=== PATIENT | female | born 1955 | race Caucasian/White ===

== ENCOUNTER → 2016-12-07 | Outpatient (CLI) | payer BC ==
[2016-12-07 14:15] LABS: Non-African American GFR(MDRD) >60 (>60 ml/min/1.73 sqM)
== END | disposition home or self-care (01) ==
LOC: LABWHC1 13:15
PROVIDERS: ATTEND Family Medicine
DX: Z01.818 Encounter for other preprocedural examination (principal)
CPT/HCPCS: 36415; 82565

== ENCOUNTER → 2016-12-08 | Outpatient (CLI) | payer BC ==
--- NOTE | 2016-12-13 12:59 | MR ---
MR internal auditory canals with and without contrast HISTORY: Acoustic neuroma, postop follow-up Multiplanar multisequence and postcontrast images obtained through the brain and internal auditory ca nals with small ekcjm-jp-vewv, postcontrast images obtained following 10 cc MultiHance IV. Exam is co rrelated to previous MR brain and internal auditory canals March There is no restricted diffusion. No hemorrhage or hydrocephalus. Internal carotid artery bilaterally again shows normal vascular flow voids. Postop changes show a stable appearance involving the tempor al bone on the left. Enhancement is noted along the internal auditory canal as on previous exam. Harleen esponding T2 low signal is present as noted on prior exam. Scattered hyperintensities within the whit e matter on inversion recovery T2-weighted sequences are again seen. Lobular calvarial signal left fr ontal bone is stable and may be related to hemangioma. The orbits show symmetric appearance. IMPRESSION: Essentially stable exam. Enhancement along the internal auditory canal on the left is sta ble may be postoperative finding. Postop changes are again noted, additional findings above.
== END | disposition home or self-care (01) ==
LOC: RADMRIMAIN 10:59
PROVIDERS: ATTEND Family Medicine
DX: D23.22 Other benign neoplasm of skin of left ear and external auricular canal (principal); Z98.890 Other specified postprocedural states
CPT/HCPCS: 70553; A9577

== ENCOUNTER → 2017-03-15 | Outpatient (CLI) | payer BC | END | disposition home or self-care (01) | LOC: LABWHC1 07:05 | PROVIDERS: ATTEND Psychiatry & Neurology Neurology | DX: B36.9 Superficial mycosis, unspecified (principal); M33.90 Dermatopolymyositis, unspecified, organ involvement unspecified | CPT/HCPCS: 36415; 82085; 82550 ==

== ENCOUNTER → 2017-05-25 | Outpatient (CLI) | payer BC ==
[2017-05-25 07:08] LABS: Appearance,Urine Clear (Clear); Bilirubin,Urine Negative (Negative); CH 29.1; CHCM 33.2; Glucose,Urine (UA) Negative (Negative); HCT 39.4 % (34.0-46.0); HDW 2.77; HGB 13.6 gm/dL (11.4-16.0); Ketones,Urine Negative (Negative); Leukocyte Esterase,Urine Trace (Negative); MCH 30.4 pg (25.0-35.0); MCHC 34.5 g/dL (31.0-37.0); MCV 88.2 fL (80.0-100.0); Mean Platelet Volume 8.4; Mucus,Urine Rare /hpf; Nitrite,Urine Negative (Negative); PH, Urine 6.5 (5.0-8.0); Particle Count 1813; Protein,Urine Negative (Negative); RBC 4.47 m/uL (3.80-5.40); RBC,Urine 1 /hpf (0-5); RDW 13.1 % (11.5-15.5); Specific Gravity,Urine 1.013 (1.001-1.035); Squamous Epithelial Cell,Urine <1 /hpf (0-4); UA Billing (MACRO vs. MICRO) MICRO; Urobilinogen,Urine <2.0 mg/dL (<2.0); WBC 3.9 k/uL (3.8-10.6); WBC,Urine 2 /hpf (0-5)
[2017-05-25 07:17] LABS: ALT 30 U/L (9-52); AST 20 U/L (14-36); Alkaline Phosphatase 73 U/L (38-126); Anion Gap 9 mmol/L; Blood Urea Nitrogen 18 mg/dL (7-17); Calcium 9.7 mg/dL (8.4-10.2); Carbon Dioxide 31 mmol/L (22-30); Chloride 106 mmol/L (98-107); Cholesterol 213 mg/dL (<200); Creatine Kinase 67 U/L (30-135); Glucose 92 mg/dL (74-99); HDL Cholesterol 86 mg/dL (40-60); Non-African American GFR(MDRD) >60 (>60 ml/min/1.73 sqM); Potassium 4.6 mmol/L (3.5-5.1); Sodium 146 mmol/L (137-145); Total Bilirubin 1.1 mg/dL (0.2-1.3); Total Protein 7.3 g/dL (6.3-8.2); Triglycerides 56 mg/dL (<150)
[2017-05-25 08:05] LABS: Hepatitis C Virus IgG Ab Negative (Negative); Hepatitis C Virus IgG Index 0.04
[2017-05-25 12:13] LABS: Hemoglobin A1C 5.4 % (4.2-6.1)
[2017-05-25 12:25] LABS: Vitamin B12 430 pg/mL (239-931)
== END | disposition home or self-care (01) ==
LOC: LABWHC1 06:42
PROVIDERS: ATTEND Psychiatry & Neurology Neurology
DX: Z00.00 Encounter for general adult medical examination without abnormal findings (principal); Z87.39 Personal history of other diseases of the musculoskeletal system and connective tissue
CPT/HCPCS: 36415; 80053; 80061; 81001; 82085; 82306; 82550; 82607; 83036; 84443; 85027; 86803

== ENCOUNTER → 2018-08-10 | Outpatient (CLI) | payer BC ==
--- NOTE | 2018-08-11 18:50 | MR ---
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 Patient with history of le ft ear glomus tumor. TECHNIQUE: Multiplanar, multisequence images of the brain and brainstem were acquired before and aft er administration of 5.5 mL Gadavist. Diffusion weighted imaging was performed. Additional coned-do wn sequences through the internal auditory canals and posterior cranial fossa before and after IV con trast administration. FINDINGS: Diffusion weighted images demonstrate no evidence of an acute ischemic lesion in the brain. T2/FLAIR weighted sequences show zpiu-gd-ljvwrlty scattered burden of bright white matter change loca abiel within the subcortical, deep, and periventricular regions of both cerebral hemispheres. There Redemonstrated post surgical change within the left temporal bone mastoid process with bright T2 FLAI R signal involving the petrous bone and probably some fat packing within the resection cavity there i s stable soft tissue thickening and associated enhancement within the left internal auditory canal. A nonenhancing T2 bright collection is present along the anterior portion of the left petrous temporal bone measuring 1.4 cm and is unchanged. No new abnormal enhancement within the posterior fossa or temporal bones. Midline structures demonstrate partially empty sella but otherwise normal morphology. The craniocerv ical junction is normal. There is mild to moderate cerebral atrophy. The ventricles are of normal caliber. There is no evidence of an acute intracranial hemorrhage, infarct, mass, mass-effect or an extra-axia l fluid collection. There is no cerebellopontine angle mass. Brainstem and skull base abnormalities are not seen. Mild mucosal thickening ethmoid air cells. IMPRESSION: 1. Stable post resection changes along the left mastoid process with what appears to be fat packing a nd stable 1.4 cm T2 bright, nonenhancing collection in the anterior petrous bone, probably some chron ic postoperative fluid. 2. Patchy enhancement throughout the left petrous bone and focal enhancing soft tissue in the left IA C is stable and may in part be postsurgical. No new enhancing lesions. 3. Stable nlrs-gs-xiujgezd scattered burden of T2 bright white matter change, likely relating to tin pot operator tina small vessel ischemic disease.
== END | disposition home or self-care (01) ==
LOC: RADMRIMAIN 05:48
PROVIDERS: ATTEND Otolaryngology
DX: D44.7 Neoplasm of uncertain behavior of aortic body and other paraganglia (principal); R90.89 Other abnormal findings on diagnostic imaging of central nervous system; Z98.890 Other specified postprocedural states
CPT/HCPCS: 82565; 70553; 36415; A9585

== ENCOUNTER → 2019-06-10 | Outpatient (CLI) | payer BC ==
--- NOTE | 2019-06-10 17:35 | US ---
EXAMINATION TYPE: US carotid duplex BILAT DATE OF EXAM: 06/10/2019 COMPARISON: NONE CLINICAL HISTORY: 63-year-old female R09.89 SYMPTOMS INVOLVING CIRCULATORY AND RESPIRATORY SYSTEMS. P atient states no symptoms TECHNIQUE: Carotid duplex ultrasound examination. Indirect Doppler criteria was utilized. FINDINGS: EXAM MEASUREMENTS: RIGHT: Peak Systolic Velocity (PSV) cm/sec ----- Right CCA: 114 ----- Right ICA: 123 ----- Right ECA: 103 ICA/CCA ratio: 1.2 RIGHT: End Diastole cm/sec ----- Right CCA: 23.4 ----- Right ICA: 29.1 ----- Right ECA: 19.2 LEFT: Peak Systolic Velocity (PSV) cm/sec ----- Left CCA: 93.5 ----- Left ICA: 199 ----- Left ECA: 79.6 ICA/CCA ratio: 2.1 LEFT: End Diastole cm/sec ----- Left CCA: 32.9 ----- Left ICA: 60.7 ----- Left ECA: 25.6 VERTEBRALS (direction of flow): Right Vertebral: Antegrade Left Vertebral: Antegrade Rhythm: Normal Minimal amount of plaque visualized bilaterally. Elevated velocities in the distal left ICA. IMPRESSION: Elevated velocities in the left ICA may reflect a moderate (50-69%) ICA stenosis. CTA evaluation as c linically indicated. Criteria for Assigning % of Stenosis / Diameter reduction (Estimation based on the indirect measurements of the internal carotid artery velocities (ICA PSV). 1. Normal (no stenosis)=ICA PSV < 125 cm/s: ratio < 2.0: ICA EDV<40 cm/s. 2. Less than 50% stenosis=ICA PSV < 125 cm/s: ratio < 2.0: ICA EDV<40 cm/s. 3. 50 to 69% stenosis=ICA PSV of 125 to 230 cm/s: ration 2.0 ? 4.0: ICA EDV 40-100 cm/s. 4. Greater than 70% stenosis to near occlusion= ICA PSV > 230 cm/s: ratio > 4.0: ICA EDV > 100 cm/s. 5. Near occlusion= ICA PSV velocities may be low or undetectable: variable ratio and ICA EDV. 6. Total occlusion=unable to detect flow.
== END | disposition home or self-care (01) ==
LOC: RADUSWWP 12:01
PROVIDERS: ATTEND Family Medicine
DX: R09.89 Other specified symptoms and signs involving the circulatory and respiratory systems (principal)
CPT/HCPCS: 93880

== ENCOUNTER → 2019-06-22 | Outpatient (CLI) | payer BC ==
[2019-06-22 08:09] LABS: HCT 35.8 % (34.0-46.0); HGB 12.2 gm/dL (11.4-16.0); MCH 29.1 pg (25.0-35.0); MCV 85.7 fL (80.0-100.0); Mean Platelet Volume 8.4; Platelet Count 260 k/uL (150-450); RBC 4.18 m/uL (3.80-5.40); RDW 14.2 % (11.5-15.5); WBC 4.1 k/uL (3.8-10.6)
[2019-06-22 08:17] LABS: Amorphous Sediment,Urine Occasional /hpf; Appearance,Urine Cloudy (Clear); Bacteria,Urine Rare /hpf; Bilirubin,Urine Negative (Negative); Blood,Urine Negative (Negative); Color,Urine Yellow; Glucose,Urine (UA) Negative (Negative); Ketones,Urine Negative (Negative); Leukocyte Esterase,Urine Negative (Negative); Mucus,Urine Rare /hpf; Nitrite,Urine Negative (Negative); Protein,Urine Negative (Negative); RBC,Urine 1 /hpf (0-5); Specific Gravity,Urine 1.026 (1.001-1.035); Urobilinogen,Urine <2.0 mg/dL (<2.0); WBC,Urine 1 /hpf (0-5)
[2019-06-22 08:46] LABS: ALT 23 U/L (9-52); AST 26 U/L (14-36); African American GFR (CKD) >90 (>60 ml/min/1.73 sqM); Alkaline Phosphatase 66 U/L (38-126); Anion Gap 8 mmol/L; Blood Urea Nitrogen 15 mg/dL (7-17); Calcium 9.2 mg/dL (8.4-10.2); Carbon Dioxide 30 mmol/L (22-30); Chloride 103 mmol/L (98-107); Cholesterol 203 mg/dL (<200); Glucose 90 mg/dL (74-99); HDL Cholesterol 64 mg/dL (40-60); LDL Cholesterol,Calculated 126 mg/dL (0-99); Sodium 141 mmol/L (137-145); Total Bilirubin 1.3 mg/dL (0.2-1.3); Total Protein 6.9 g/dL (6.3-8.2); Triglycerides 65 mg/dL (<150)
--- NOTE | 2019-06-23 08:51 | CT ---
EXAMINATION TYPE: CT angio neck DATE OF EXAM: 06/22/2019 HISTORY: Abn US of carotids, history of glomus jugular tumor removal COMPARISON: Quadrant ultrasound dated 06/10/2019 CT DLP: 307 mGycm. Automated Exposure Control for Dose Reduction was Utilized. TECHNIQUE: CTA scan of the neck is performed with IV Contrast, patient injected with 50 mL of Isovue 370, axial images are obtained, coronal and sagittal reformatted images are reviewed. Three-D recons tructed images are created on an independent workstation and reviewed. FINDINGS: Carotid/Vascular Structures: There is a conventional three-vessel branch pattern of the aortic arch. The common carotid arteries appear patent without hemodynamically significant stenosis. The left vert ebral artery is dominant although the vertebrobasilar system in its visualized portion appears patent . The carotid bulbs also appear patent and unremarkable. The right internal carotid artery and metal products viewer al carotid artery and their visualized portions are patent and unremarkable. 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 Other: Postsurgical change of the left mastoid air cells are seen. Mild degenerative changes of the s pine. Very minimal emphysematous changes of the lung apices with biapical pleural parenchymal scarrin g. Scant mucosal thickening in the inferior maxillary sinuses. IMPRESSION: Despite abnormal elevated velocity in the left ICA on the prior ultrasound there is no he modynamically significant stenosis in the internal carotid artery seen. 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 No hem odynamically significant stenosis within either carotid bulb, common carotid artery nor internal knapp tid artery.
== END | disposition home or self-care (01) ==
LOC: RADCTMAIN 07:18
PROVIDERS: ATTEND Family Medicine
DX: I65.22 Occlusion and stenosis of left carotid artery (principal); Z00.00 Encounter for general adult medical examination without abnormal findings
CPT/HCPCS: 80061; 80053; 84443; 85027; 81001; 82306; 70498; 36415; Q9967

== ENCOUNTER → 2019-07-02 | Outpatient (CLI) | payer BC ==
--- NOTE | 2019-07-02 09:24 | MM ---
Reason for exam: screening (asymptomatic). Last mammogram was performed 4 years and 4 months ago. History: Patient is postmenopausal. Physical Findings: A clinical breast exam by your physician is recommended on an annual basis and results should be correlated with mammographic findings. MG Screening Mammo w CAD Bilateral CC and MLO view(s) were taken. Prior study comparison: March 02, 2015, bilateral MG diagnostic mammo w CAD [facility]. November 25, 2014, left breast MG diagnostic mammo LT w CAD. The breast tissue is heterogeneously dense. This may lower the sensitivity of mammography. No suspicious abnormality. Stable right upper outer quadrant posterior depth focal asymmetry back to 2013. No significant changes when compared with prior studies. ASSESSMENT: Benign, BI-RAD 2 RECOMMENDATION: Routine screening mammogram of both breasts in 1 year.
== END | disposition home or self-care (01) ==
LOC: RADMAMWWP 07:35
PROVIDERS: ATTEND Family Medicine
DX: Z12.31 Encounter for screening mammogram for malignant neoplasm of breast (principal)
CPT/HCPCS: 77067

== ENCOUNTER → 2019-07-25 | Outpatient (CLI) | payer BC ==
--- NOTE | 2019-07-25 10:16 | BD ---
EXAMINATION TYPE: Axial Bone Density DATE OF EXAM: 07/25/2019 COMPARISON: 03/26/2010 CLINICAL HISTORY: M 81.0 Height: 65.5 Weight: 121.0 FRAX RISK QUESTIONS: Alcohol (3 or more units per day): no Family History (Parent hip fracture): yes Glucocorticoids (More than 3mos): no (Ex: prednisone, prednisolone, methylprednisolone, dexamethasone, and hydrocortisone). History of Fracture in Adulthood: no Secondary Osteoporosis: 1. Type 1 Diabetes: no 2. Hyperthyroidism: no 3. Menopause before 45: no 4. Malnutrition: no 5. Chronic liver disease: no Rheumatoid Arthritis: no Current Tobacco Use: no RISK FACTORS HISTORY OF: Family History of Osteoporosis: no Active: yes Diet low in dairy products/other sources of calcium: yes Postmenopausal woman: age 51 Lost more than 2 inches in height since high school: no MEDICATIONS: none Additional History: EXAM MEASUREMENTS: Bone mineral densitometry was performed using the [employer] System. Bone mineral density as measured about the Lumbar spine is: ----- L1-L4(G/cm2): 0.805 T Score Values are as follows: ----- L2: -3.4 ----- L3: -3.0 ----- L4: -3.1 ----- L1-L4: -3.1 Bone mineral density has: decreased -19.0 % since study of: 03.26.2010 Bone mineral density about the R hip (g/cm2): 0.712 Bone mineral density about the L hip (g/cm2): 0.697 T Score values are as follows: -----R Neck: -2.3 -----L Neck: -2.3 -----R Total: -2.6 -----L Total: -2.8 Bone mineral density has: decreased -10.3 % since study of: 03.26.2010 IMPRESSION: Osteoporosis (T Score less than -2.5). There is increased fracture risk and therapy is usually indicated based on age. Re-Screen 1-2 years. NOTE: T-SCORE=SD OF THE YOUNG ADULT MEAN.
== END | disposition home or self-care (01) ==
LOC: RADBDWWP 07:07
PROVIDERS: ATTEND Family Medicine
DX: M81.0 Age-related osteoporosis without current pathological fracture (principal)
CPT/HCPCS: 77080

== ENCOUNTER → 2020-06-02 | Outpatient (CLI) | payer BC | END | disposition home or self-care (01) | LOC: RADMRIMAIN 07:06 | PROVIDERS: ATTEND Otolaryngology | DX: Z53.9 Procedure and treatment not carried out, unspecified reason (principal) ==

== ENCOUNTER → 2020-06-13 | Outpatient (CLI) | payer BC ==
--- NOTE | 2020-06-13 10:52 | MR ---
EXAMINATION TYPE: MR iac wo/w con DATE OF EXAM: 06/13/2020 8:24 AM HISTORY: Hearing loss, hx left glomus tumor TECHNIQUE: Multiplanar and multispin-echo imaging of the brain was performed both before and after the administr ation of contrast. High-resolution images are obtained of the internal auditory canals performed uti lizing 6 mL intravenous Gadavist contrast. COMPARISON: 08/10/2019 The ventricles, basal cisterns and sulci overlying the cerebral convexities demonstrate mild generali zed atrophic change. There is no evidence for midline shift or mass effect. Acute intracranial hemorrhage or extra-axial collection is not evident. There are no abnormal areas of increased or decreased signal intensity within the brain parenchyma. High-resolution imaging of the internal auditory canals was performed. Again noted is postoperative c hange within the left temporal bone mastoid process with fat packing identified within the resection cavity. Stable soft tissue thickening and enhancement of the left-sided internal auditory canal. No n ew areas of enhancement or masses are seen. Right-sided mastoid air cells and right internal auditory canal are unremarkable. The paranasal sinuses are well-aerated. IMPRESSION: 1. Stable postoperative changes of resection and fat packing left mastoid. No new masses or pathologi c enhancement seen. 2. Age-related atrophic and chronic small vessel ischemic change.
== END | disposition home or self-care (01) ==
LOC: RADMRIMAIN 07:21
PROVIDERS: ATTEND Otolaryngology
DX: H74.8X2 Other specified disorders of left middle ear and mastoid (principal); Z98.890 Other specified postprocedural states
CPT/HCPCS: 70553; A9585

== ENCOUNTER → 2020-10-01 | Outpatient (CLI) | payer BC ==
--- NOTE | 2020-10-01 16:26 | US ---
EXAMINATION TYPE: US kidneys/renal and bladder DATE OF EXAM: 10/01/2020 COMPARISON: NONE CLINICAL HISTORY: R31.9 Hematuria. EXAM MEASUREMENTS: Right Kidney: 9.8 x 4.5 x 5.0 cm Left Kidney: 10.7 x 4.3 x 4.2 cm Right Kidney: medial cyst measuring 3.3 x 3.2 x 3.4 cm. Left Kidney: lateral cyst measuring 1.5 x 1.5 x 4.2 cm. Bladder: wnl Left jet seen, right not visualized IMPRESSION: 1. Simple appearing cyst bilateral kidneys
== END | disposition home or self-care (01) ==
LOC: RADUSWWP 10:19
PROVIDERS: ATTEND Urology
DX: N28.1 Cyst of kidney, acquired (principal)
CPT/HCPCS: 76770

== ENCOUNTER → 2020-11-05 | Outpatient (CLI) | payer BC ==
--- NOTE | 2020-11-06 10:11 | MM ---
Reason for exam: screening (asymptomatic). Last mammogram was performed 1 year and 4 months ago. History: Patient is postmenopausal. Physical Findings: A clinical breast exam by your physician is recommended on an annual basis and results should be correlated with mammographic findings. MG Screening Mammo w CAD Bilateral CC and MLO view(s) were taken. Prior study comparison: July 02, 2019, bilateral MG screening mammo w CAD. March 02, 2015, bilateral MG diagnostic mammo w CAD [facility]. The breast tissue is heterogeneously dense. This may lower the sensitivity of mammography. There are benign appearing round vascular calcifications in the right breast. There is no discrete abnormality. ASSESSMENT: Benign, BI-RAD 2 RECOMMENDATION: Routine screening mammogram of both breasts in 1 year.
== END | disposition home or self-care (01) ==
LOC: RADMAMWWP 08:29
PROVIDERS: ATTEND Family Medicine
DX: Z12.31 Encounter for screening mammogram for malignant neoplasm of breast (principal)
CPT/HCPCS: 77067

== ENCOUNTER → 2021-05-03 | Outpatient (CLI) | payer BC ==
--- NOTE | 2021-05-03 12:34 | MR ---
EXAMINATION TYPE: MR iac wo/w con DATE OF EXAM: 05/03/2021 COMPARISON: Prior MRI internal auditory canals with and without contrast 06/13/2020 HISTORY: L tinnitis, follow up glomus tumor TECHNIQUE: Multiplanar, multisequence images of the brain and brainstem is performed with high-resolution and sm all gorak-rt-ifup imaging through the internal auditory canals without and with IV contrast, utilizin g 5.5 mL intravenous Gadavist . FINDINGS: Postop changes within the temporal bone on the left are again noted. There are correspondin g signal abnormalities. Abnormal signal along the internal auditory canal on the left shows a stable appearance. Diffusion weighted images demonstrate no evidence of a recent infarct or other diffusion abnormality. There is no extra-axial fluid collection or significant white matter signal abnormality . The ventricular system and cisternal spaces are normal in size and appearance. The brain volume i s age appropriate. Midline structures demonstrate normal morphology. The craniocervical junction appears within normal limits. Post contrast images demonstrate stable enhancement. The dural venous sinuses appear patent. The visualized sinuses are clear and the globes are intact. IMPRESSION: Exam is stable. No interval change is evident. Postop changes. Suspected enhancement myah g the internal auditory canal on the left, abnormal signal is unchanged.
== END | disposition home or self-care (01) ==
LOC: RADMRIMAIN 08:00
PROVIDERS: ATTEND Otolaryngology
DX: H93.12 Tinnitus, left ear (principal); R93.0 Abnormal findings on diagnostic imaging of skull and head, not elsewhere classified; Z98.890 Other specified postprocedural states
CPT/HCPCS: 70553; A9585

== ENCOUNTER → 2021-09-08 | Outpatient (CLI) | payer BC, MEDICARE, OTHER ==
--- NOTE | 2021-09-08 07:58 | MR ---
EXAMINATION TYPE: MR brain wo/w con DATE OF EXAM: 09/08/2021 COMPARISON: MRI IAC May 03.1 HISTORY: Malignant neoplasm brain, history of glomus tumor TECHNIQUE: Multiplanar, multisequence images of the brain and brainstem is performed without and with IV contras t, utilizing 5.5 mL intravenous Gadavist . FINDINGS: Diffusion weighted images demonstrate no evidence of a recent infarct or other diffusion ab normality. The ventricular system and cisternal spaces are normal in size and appearance. The brain volume is age appropriate. Some scattered foci of T2 hyperintensity throughout the white matter bilat erally redemonstrated. Approximately 30 tiny scattered lesions are seen. Lesions are nonspecific in a ppearance and distribution. Midline structures demonstrate normal morphology. The craniocervical junction appears within normal limits. Postsurgical change left cerebellopontine angle redemonstrated with T1 rectangular enhancemen t of the inner portion of the vestibulocochlear complex. Anterior and inferior to this there is heter ogeneous thickening and enhancement of the petrous apex surrounding the carotid siphon redemonstrated axial image 26. No new enhancing masses. The dural venous sinuses appear patent. The visualized sinu ses are clear and the globes are intact. IMPRESSION: Stable findings left vestibulocochlear complex and petrous apex. Bilateral mild to border line moderate nonspecific white matter changes favor probable proximal vessel ischemic change redemon strated. No new enhancing lesions. No significant change from most recent MRI.
== END ==
LOC: RADMRIMAIN 06:47
PROVIDERS: ATTEND Psychiatry & Neurology Neurology
DX: C71.9 Malignant neoplasm of brain, unspecified (principal)
CPT/HCPCS: 70553; A9585

== ENCOUNTER → 2021-12-29 | Outpatient (CLI) | payer BC, MEDICARE, OTHER ==
--- NOTE | 2021-12-29 10:24 | MR ---
EXAMINATION TYPE: MR iac wo/w con DATE OF EXAM: 12/29/2021 COMPARISON: HISTORY: Hx of Glomus Jug tumor, f/u TECHNIQUE: Multiplanar, multisequence images of the brain and brainstem is performed with small steir-vn-tkrd hi gh-resolution images through the internal auditory canal on the left without and with IV contrast, ut ilizing 5.5 mL intravenous Gadavist . FINDINGS: Diffusion weighted images demonstrate no evidence of a recent infarct or other diffusion ab normality. There is no extra-axial fluid collection or significant change in white matter signal abn ormality. The ventricular system and cisternal spaces are normal in size and appearance. The brain volume is age appropriate. The increased signal along the internal auditory canal on the left following contrast administration is again noted, precontrast scans through this level are not seen, findings are stable. Postoperative changes are noted, fat signal is present at the site of patient's mastoidectomy, temporal bone inclu ding petrous apex on the left. Midline structures demonstrate normal morphology. The craniocervical junction appears within normal limits. Post contrast images demonstrate no abnormal enhancement. The dural venous sinuses appear pa tent. The visualized sinuses are showing mucosal disease in the x-ray sinus and the globes are intact . IMPRESSION: Stable findings, postoperative changes.
== END | disposition home or self-care (01) ==
LOC: RADMRIMAIN 07:27
PROVIDERS: ATTEND Otolaryngology
DX: H91.90 Unspecified hearing loss, unspecified ear (principal); Z86.018 Personal history of other benign neoplasm
CPT/HCPCS: 70553; A9585

== ENCOUNTER → 2023-01-21 | Outpatient (CLI) | payer BC, MEDICARE ==
--- NOTE | 2023-01-21 10:30 | MR ---
EXAMINATION TYPE: MR iac wo/w con DATE OF EXAM: 01/21/2023 COMPARISON: MRI IAC January 08, 2022 and older studies. HISTORY: F/U glomus Tumor removed x 15 years, left side hearing loss TECHNIQUE: Multiplanar, multisequence images of the brain and brainstem is performed without and with IV contras t, utilizing 5 mL intravenous Gadavist . Acoustic nerve disorder protocol. FINDINGS: Diffusion weighted images demonstrate no evidence of a recent infarct or other diffusion ab normality. There is mild ventricular and sulcal prominence redemonstrated. There are scattered tiny l esions of T2 hyperintensity throughout the white matter bilaterally. Approximately 30 tiny scattered lesions are redemonstrated similar to prior. Midline structures demonstrate normal morphology. The craniocervical junction appears within normal limits. Normal signal voids are redemonstrated. Stable mild mucosal thickening involving ethmoid sinu ses bilaterally. Globes are intact bilaterally. Postsurgical change to the left mastoid is redemonstrated. There is some patchy fluid in the remnant left posterior mastoid air cells similar to prior. The vestibulocochlear complex shows homogeneous en hancing 8 x 5 mm area of enhancement image 15 series 1101, this appears in retrospect is stable or sl ightly less prominent with less prominent left lateral extension versus prior. IMPRESSION: 1. Persistent homogeneous enhancing area suspected mass left vestibulocochlear complex worrisome for residual and/or recurrent neoplasm. Further workup and follow-up advised.
== END | disposition home or self-care (01) ==
LOC: RADMRIMAIN 08:36
PROVIDERS: ATTEND Otolaryngology
DX: H91.92 Unspecified hearing loss, left ear (principal); Z86.018 Personal history of other benign neoplasm
CPT/HCPCS: 70553; A9585

== ENCOUNTER → 2023-09-05 | Outpatient (CLI) | payer MEDICARE, BC ==
--- NOTE | 2023-09-06 20:04 | MM ---
Reason for Exam: Screening (asymptomatic). Last mammogram was performed 2 year(s) and 10 month(s) ago. Patient History: Menarche at age 14. First Full-Term at age 22. Left ovary removed at age 53. Right ovary removed at age 53. Postmenopausal. Risk Values: Tara 5 year model risk: 1.5%. NCI Lifetime model risk: 5.2%. Prior Study Comparison: 03/02/2015 Bilateral Diagnostic Mammogram, [facility]. 07/02/2019 Bilateral Screening Mammogram, [facility]. 11/05/2020 Bilateral Screening Mammogram, [facility]. Tissue Density: There are scattered fibroglandular densities. Findings: Analyzed By CAD. Chronic bilateral nodularity. There is no suspicious group of microcalcifications or new suspicious mass in either breast. Overall Assessment: Benign, BI-RAD 2 Management: Screening Mammogram of both breasts in 1 year. . Patient should continue monthly self-breast exams. A clinical breast exam by your physician is recommended on an annual basis. This exam should not preclude additional follow-up of suspicious palpable abnormalities. Note on Tara scores and lifetime risk: 1. A Tara score greater than 3% is considered moderate risk. If this is the case, consider specialist referral to assess eligibility for a risk reducing agent. 2. If overall lifetime risk for the development of breast cancer is 20% or higher, the patient may qualify for future screening with alternating mammogram and breast MRI. Electronically signed and approved by: Aldo Hale M.D. Radiologist
== END | disposition home or self-care (01) ==
LOC: RADMAMWWP 11:28
PROVIDERS: ATTEND Family Medicine
DX: Z12.31 Encounter for screening mammogram for malignant neoplasm of breast (principal); Z78.0 Asymptomatic menopausal state
CPT/HCPCS: 77063; 77067

== ENCOUNTER → 2024-01-30 | Outpatient (CLI) | payer BC, MEDICARE ==
--- NOTE | 2024-01-31 05:52 | MR ---
EXAMINATION TYPE: MR iac wo/w con DATE OF EXAM: 01/30/2024 COMPARISON: Prior MRI January 21, 2023 and older studies HISTORY: F/U glomus Tumor removed x 16 years, left side hearing loss TECHNIQUE: Multiplanar, multisequence images of the brain and brainstem is performed without and with IV contras t, utilizing 5.5 mL intravenous Gadavist . Acoustic nerve disorder protocol. FINDINGS: Diffusion weighted images demonstrate no evidence of a recent infarct or other diffusion ab normality. There is mild ventricular and sulcal prominence redemonstrated. There are scattered tiny l esions of T2 hyperintensity throughout the white matter bilaterally redemonstrated. Approximately 35 tiny scattered lesions are again seen similar to prior. Midline structures redemonstrate normal morphology. The craniocervical junction remains within vicky l limits. Normal signal voids are redemonstrated. Stable mild mucosal thickening involving ethmoid si nuses bilaterally. Globes are intact bilaterally. Postsurgical change to the left mastoid is redemonstrated. There is some patchy fluid in the remnant left posterior mastoid air cells similar to prior. The vestibulocochlear complex redemonstrates homog eneous enhancing 8 x 5 mm area of enhancement image 19 series 1001, this appears stable from most rec ent prior measuring 4.6 mm craniocaudal image 12 series 1101 on current study similar to most recent prior. IMPRESSION: 1. Persistent homogeneous enhancing area suspected mass left vestibulocochlear complex worrisome for residual or recurrent neoplasm. No significant change from most recent prior MRI.
== END | disposition home or self-care (01) ==
LOC: RADMRIMAIN 19:21
PROVIDERS: ATTEND Otolaryngology
DX: H91.90 Unspecified hearing loss, unspecified ear (principal)
CPT/HCPCS: 70553; A9585

== ENCOUNTER → 2024-09-10 | Outpatient (CLI) | payer MEDICARE ==
[2024-09-10 08:19] LABS: Appearance,Urine Clear (Clear); Bilirubin,Urine Negative (Negative); Blood,Urine Negative (Negative); Color,Urine Colorless; Glucose,Urine (UA) Negative (Negative); Ketones,Urine Negative (Negative); Leukocyte Esterase,Urine Negative (Negative); Nitrite,Urine Negative (Negative); Protein,Urine Negative (Negative); Specific Gravity,Urine 1.009 (1.001-1.035); Urobilinogen,Urine <2.0 mg/dL (<2.0)
[2024-09-10 12:26] LABS: BUN/Creat Ratio 19.38 Ratio (12.00-20.00); Blood Urea Nitrogen 15.5 mg/dL (9.0-27.0); Chol/HDL Ratio 2.95 Ratio; Glucose 102 mg/dL (70-110); LDL Cholesterol,Calculated 126.5 mg/dL (0.0-131.0); VLDL Calculation 14.86 mg/dL (5.00-40.00)
[2024-09-10 12:27] LABS: ALT 14 U/L (8-44); AST 19 U/L (13-35); Albumin 4.3 g/dL (3.8-4.9); Albumin/Globulin Ratio 1.48 Ratio (1.60-3.17); Alkaline Phosphatase 93 U/L (41-126); Calcium 9.6 mg/dL (8.7-10.3); Carbon Dioxide 27.6 mmol/L (21.6-31.8); Chloride 102 mmol/L (96-109); Globulin 2.9 g/dL (1.6-3.3); Potassium 3.5 mmol/L (3.5-5.5); Sodium 139 mmol/L (135-145); Total Bilirubin 0.8 mg/dL (0.3-1.2); Total Protein 7.2 g/dL (6.2-8.2)
[2024-09-10 14:26] LABS: Basophils # (A) 0.04 X 10*3/uL (0.00-0.10); Basophils % (A) 0.8 %; Eosinophils # (A) 0.15 X 10*3/uL (0.04-0.35); HCT 38.7 % (37.2-46.3); HGB 12.4 g/dL (12.0-15.0); Lymphocytes # (A) 1.54 X 10*3/uL (0.90-5.00); Lymphocytes % (A) 31.3 %; MCH 28.4 pg (27.0-32.0); MCV 88.6 FL (80.0-97.0); Mean Platelet Volume 12.2 FL (9.5-12.2); Monocytes # (A) 0.57 X 10*3/uL (0.20-1.00); Monocytes % (A) 11.6 %; NRBC Per 100 WBC 0 X 10*3/uL (0.00-0.01); Neutrophils # (A) 2.61 X 10*3/uL (1.80-7.70); Neutrophils % (A) 53.1 %; Platelet Count 302 X 10*3/uL (140-440); RBC 4.37 X 10*6/uL (4.10-5.20); RDW 13.7 % (11.5-14.5); WBC 4.92 X 10*3/uL (4.50-10.00)
== END | disposition home or self-care (01) ==
LOC: LABWHC1 07:46
PROVIDERS: ATTEND Family Medicine
DX: E78.00 Pure hypercholesterolemia, unspecified (principal); M81.0 Age-related osteoporosis without current pathological fracture
CPT/HCPCS: 36415; 80053; 80061; 81003; 82306; 83036; 84443; 85025

== ENCOUNTER 2024-10-31 13:18 | Day surgery (SDC) | payer MEDICARE ==
[2024-10-25 15:18] VITALS: BMI 19.3
[~2024-10-31 13:18] MED LIST: LACTATED RINGERS 1,000 ML IV SCH; LIDOCAINE 1% (10MG/ML) FOR IV START INTRADERMA PRN
[2024-10-31] MEDS: SODIUM CHLORIDE 0.9% 1,000 ML IV ONE (13:34)
[2024-10-31 13:44] VITALS: TEMP 97.6
[2024-10-31] MEDS ORDERED: PROPOFOL 10 MG/ML 20 ML VIAL IV ONE (14:27)
[2024-10-31] MEDS ORDERED: LIDOCAINE 1% INJ 10MG/ML (20 ML MDV) ONE (14:27)
--- NOTE | 2024-10-31 14:36 | P.GSHP ---
History of Present Illness H&P Date: 10/31/24 Chief Complaint: Colon cancer screening 69-year-old female here for colonoscopy. She is unsure when her last colonoscopy was. Family history of colon cancer in her father. No bowel complaints. No history of polyps. Past Medical History Past Medical History: No Reported History History of Any Multi-Drug Resistant Organisms: None Reported Additional Past Surgical History / Comment(s): tumour removed from neck Past Anesthesia/Blood Transfusion Reactions: No Reported Reaction Additional Past Anesthesia/Blood Transfusion Reaction / Comment(s): no blood transfusion Smoking Status: Never smoker - Past Family History Father Family Medical History: Cancer Additional Family Medical History / Comment(s): lung Medications and Allergies Home Medications Medication Instructions Recorded Confirmed Type No Known Home Medications 10/25/24 10/31/24 History Allergies Allergy/AdvReac Type Severity Reaction Status Date / Time No Known Allergies Allergy Verified 10/31/24 13:37 Surgical - Exam Vital Signs Temp Pulse Resp BP Pulse Ox 97.6 F 94 16 148/72 100 10/31/24 13:42 10/31/24 13:42 10/31/24 13:42 10/31/24 13:42 10/31/24 13:42 Physical exam: General: Well-developed, well-nourished HEENT: Normocephalic, sclerae nonicteric Abdomen: Nontender, nondistended Extremities: No edema Neuro: Alert and oriented Assessment and Plan (1) Colon cancer screening Narrative/Plan: Will proceed with colonoscopy at this time. Current Visit: Yes Status: Acute Code(s): Z12.11 - ENCOUNTER FOR SCREENING FOR MALIGNANT NEOPLASM OF COLON SNOMED Code(s): 522061320
--- NOTE | 2024-10-31 14:56 | P.PCN ---
Date of Procedure: 10/31/24 Procedure(s) Performed: PREOPERATIVE DIAGNOSIS: Colon cancer screening, family history in father POSTOPERATIVE DIAGNOSIS: Diverticulosis PROCEDURE: Colonoscopy ANESTHESIA: MAC SURGEON: Jeromy Mello M.D. SPECIMENS: None ENDOSCOPIC PROCEDURE: The patient was placed on the endoscopy table in the left decubitus position. The Olympus colonoscope was inserted into the anus and passed under direct visualization to the base of the cecum. The appendiceal orifice was visualized. From that point the scope was slowly withdrawn inspecting all surfaces carefully. There were no neoplastic inflammatory or polypoid lesions throughout the cecum, ascending, transverse, descending, sigmoid and rectum. There was moderate left-sided diverticulosis noted. The patient's prep was slightly suboptimal. Digital rectal examination was normal. The patient was taken to the recovery room in stable condition per anesthesia guidelines. RECOMMENDATIONS: Resume diet. Repeat colonoscopy 5 years.
[2024-10-31 15:01] VITALS: RESP 14
[2024-10-31 15:14] VITALS: BP 123/59; PULSE 74
== END 2024-10-31 15:49 | disposition home or self-care (01) ==
LOC: ORWHC2ENDO 13:18
PROVIDERS: ATTEND Surgery
DX: Z12.11 Encounter for screening for malignant neoplasm of colon (principal); K57.30 Diverticulosis of large intestine without perforation or abscess without bleeding
CPT/HCPCS: J2003; J2704; G0121